=== PATIENT | female | born 1945 | race Caucasian/White ===

== ENCOUNTER 2019-08-02 08:49 | Outpatient (CLI) | payer MEDICARE, OTHER, SELFPAY ==
--- NOTE | 2019-08-02 09:07 | MM_ITS ---
WS: [id number] DIAGNOSTIC LEFT DIGITAL MAMMOGRAM WITH CAD HISTORY: 6 MO F/U LT BREAST ABNORMAL MAMMOGRAM COMPARISON: 01/11/2019, 12/22/2018, 11/19/2016 Technique: CC, MLO and ML views. Spot compression LEFT. Breast composition: There are scattered areas of fibroglandular density. The vague asymmetry seen in the medial LEFT breast is no longer present. No suspicious masses. Benign breast arterial calcificat ions. MM/[place] [id number] IMPRESSION: BI-RADS: 2-Benign FOLLOW UP: See Report Patient to return to annual screening mammography. Screening mammogram should b e in December 2019.
== END 2019-08-02 08:50 | disposition home or self-care (01) ==
LOC: RADSHAW 08:55
PROVIDERS: Family Provider Family Medicine; PCP Family Medicine; Visit Provider Family Medicine
DX: R92.8 Other abnormal and inconclusive findings on diagnostic imaging of breast (principal)
CPT/HCPCS: 77065

== ENCOUNTER 2020-01-02 10:49 | Outpatient (CLI) | payer MEDICARE, OTHER, SELFPAY ==
--- NOTE | 2020-01-02 10:59 | MM_ITS ---
WS: [id number] BILATERAL DIGITAL SCREENING MAMMOGRAPHY WITH CAD CLINICAL INFORMATION: SCREENING HISTORY: Screening mammogram. No current complaints. COMPARISON: August 02, 2019 TECHNIQUE: Bilateral CC and MLO views. FINDINGS: Scattered fibroglandular densities bilaterally. No suspicious focal mass, asymmetry, calcifications, or architectural distortion. No evidence of malignancy. Vascular calcification MM/[place] [id number] IMPRESSION: BI-RADS: 2-Benign FOLLOW UP: 1 Year Follow-up Recommend return to annual screening mammography.
== END 2020-01-02 10:50 | disposition home or self-care (01) ==
PROVIDERS: PCP Internal Medicine; Visit Provider Family Medicine
DX: Z12.31 Encounter for screening mammogram for malignant neoplasm of breast (principal)
CPT/HCPCS: 77067

== ENCOUNTER 2020-03-05 14:36 | Outpatient (CLI) | payer MEDICARE, OTHER, SELFPAY ==
--- NOTE | 2020-03-05 14:58 | XR_ITS ---
WS: [id number] SCREENING DEXA SCAN D-ÉG [employer] CLINICAL INFORMATION: ASYMPTOMATIC POSTMENOPAUSAL STATUS COMPARISON: May 04, 2017 FINDINGS: The L1-L4 bone mineral density measures 1.499 g/cm2. This corresponds to a T score score of 2.7 and Z score of 3.4. Left femoral neck bone mineral density measures 1.118 g/cm2. This corresponds to a T score of 0.9 and Z score of 1.9. Right femoral neck bone mineral density measures 1.104 g/cm2. This corresponds to a T score 0.8of and Z score of 1.7. Mean femoral neck bone mineral density measures 1.111 g/cm2. This corresponds to a T score of 0.8 and Z score of 1.8. XR/XR DEXA axial skeleton* [id number] IMPRESSION: Normal bone mineralization. Patient's FRAX calculated 10 year probability for major osteoporotic fracture i s 12.9 % and osteoporotic hip fracture is 1.5%.
== END 2020-03-05 14:37 | disposition home or self-care (01) ==
LOC: RADWPI 14:40
PROVIDERS: PCP Internal Medicine; Visit Provider Internal Medicine
DX: Z78.0 Asymptomatic menopausal state (principal)
CPT/HCPCS: 77080

== ENCOUNTER 2021-03-04 12:18 | Outpatient (CLI) | payer MEDICARE, OTHER, SELFPAY ==
--- NOTE | 2021-03-04 12:42 | MM_ITS ---
WS: [id number] SCREENING DIGITAL MAMMOGRAM WITH CAD HISTORY: YEARLY SCREENING COMPARISON: None available. Bilateral CC and MLO views submitted. Computer aided detection analyzed. Breast composition: There are scattered areas of fibroglandular density. Increasing cluster of calcif ications in the central RIGHT breast posteriorly need further evaluation with magnification views. Th ere is an asymmetry in the superior RIGHT breast on the MLO projection at a middle depth measuring 7 mm. Additional increasing asymmetry on the LEFT MLO central to the nipple in the anterior breast. MM/[place] [id number] IMPRESSION: BI-RADS: 0-Incomplete: Need additional imaging evaluation FOLLOW UP: Need Additional Imaging RIGHT breast: Spot compression views (MLO). True ML. Ultrasound to follow if ab normality persists. LEFT breast: Spot compression views (MLO). True ML. Ultrasound to follow if abn ormality persists. RIGHT BREAST: Magnification views of suspicious calcification CC and MLO. True ML.
== END 2021-03-04 12:19 | disposition home or self-care (01) ==
LOC: RADSHAW 12:26
PROVIDERS: PCP Internal Medicine; Visit Provider Internal Medicine
DX: Z12.31 Encounter for screening mammogram for malignant neoplasm of breast (principal)
CPT/HCPCS: 77067

== ENCOUNTER 2021-03-27 12:38 | Outpatient (CLI) | payer MEDICARE, OTHER, SELFPAY ==
--- NOTE | 2021-03-27 13:11 | US_ITS ---
WS: [id number] ADDITIONAL VIEWS BILATERAL MAMMOGRAM LEFT breast ultrasound, limited. HISTORY: ABNORMAL MAMMOGRAM COMPARISON: 03/04/2021, 01/02/2020, 08/02/2019 and 12/22/2018 Spot compression views LEFT breast in CC, MLO projections and true ML submitted. The nodular asymmetr ies persist in the anterior breast of mild increased density. Ultrasound to be performed. Magnification views of calcifications in the posterior RIGHT breast have been performed. Calcificatio ns are in the central posterior breast. This is a small cluster of calcifications and some of these a re irregular. Biopsy to be performed. LEFT breast ultrasound, limited. Ultrasound directed to the anterior breast. No suspicious masses or dilated ducts are identified. US/US breast LT limited* [id number] IMPRESSION: BI-RADS: 4-Suspicious Finding-Biopsy Should Be Considered FOLLOW UP: Stereotactic Biopsy Recommended Stereotactic biopsy recommended of the RIGHT breast calcifications.
== END 2021-03-27 12:39 | disposition home or self-care (01) ==
LOC: RADSHAW 12:48
PROVIDERS: PCP Internal Medicine; Visit Provider Internal Medicine
DX: R92.8 Other abnormal and inconclusive findings on diagnostic imaging of breast (principal); R92.1 Mammographic calcification found on diagnostic imaging of breast
CPT/HCPCS: 76642; 77066

== ENCOUNTER 2022-10-16 11:47 | Outpatient (CLI) | payer MEDICARE, SELFPAY ==
--- NOTE | 2022-10-16 11:57 | XR_ITS ---
WS: [email or web address] Lumbar spine, 5 views including obliques, 10/16/2022 Clinical Data: DEGENERATIVE DISC DISEASE, LUMBOSACRAL SPINE W/RADICULOPATH Comparison: Lumbar spine, 01/06/2017. Findings: No compression fractures or subluxation is seen. There are multilevel bridging osteophytes along with disc narrowing at every lumbar level. The oblique films show no spondylolysis. The transverse proces ses and SI joints are normal. The abdominal aorta shows calcification but no aneurysm. XR/XR lumbar spine min 4V [id number] Impression: Multilevel bridging osteophytes with degenerative disc narrowing with minimal p rogression
== END 2022-10-16 11:48 | disposition home or self-care (01) ==
PROVIDERS: PCP Internal Medicine; Visit Provider Internal Medicine
DX: M51.16 Intervertebral disc disorders with radiculopathy, lumbar region (principal)
CPT/HCPCS: 72110

== ENCOUNTER 2022-11-04 14:44 | Outpatient (CLI) | payer MEDICARE, SELFPAY ==
--- NOTE | 2022-11-04 15:27 | MR_ITS ---
WS: [email or web address] MRI LUMBAR SPINE NONCONTRAST TECHNIQUE: Sagittal T1, T2 and STIR imaging. Axial T1 and T2 imaging. CLINICAL INFORMATION: DEGENERATIVE DISK DISEASELUMBROSACRAL SPINE W/RADICULOPATHY COMPARISON: MRI 2017 FINDINGS: Mild lumbar curve. No acute compression. No high-grade central canal stenosis. L1-L2: Mild annular bulging. Mild facet arthropathy. Spinal canal and foramen are patent. L2-L3: Mild annular bulging. Slight effacement of the ventral thecal sac. Mild facet arthropathy. Sli ght narrowing of subarticular recess bilaterally. L3-L4: Mild annular bulging. Slight narrowing of the RIGHT greater than LEFT subarticular recess. Mil d facet arthropathy. Foramen are patent. L4-L5: Mild annular bulging. Mild central canal stenosis. Impingement on traversing LEFT L5 nerve burke t in the subarticular recess. Mild facet arthropathy. Foramen are patent. L5-S1: Disc osteophyte complex with endplate ridging. Slight impingement traversing RIGHT S1 nerve ro ot in the subarticular recess. Foramen are patent. Partially visualized hepatic cyst. Peripelvic LEFT renal cysts MR/MR lumbar spine wo con* [id number] IMPRESSION: Disc bulging at L3-L4 is improved compared to 2017 with increased d isc desiccation. Central canal stenosis at L4-L5 appears slightly progressed. N o other remarkable interval changes. 1. Mild lumbar curve. No acute compression. No high-grade central canal stenos is. 2. Mild central canal stenosis L3-L4 and L4-L5 with impingement on the LEFT L4 -L5 subarticular recess and traversing LEFT L5 nerve root. 3. Disc osteophyte complex L5-S1 slightly impinges the traversing RIGHT greate r than LEFT S1 nerve roots. 4. Mild to moderate facet arthropathy L3-L5.
== END 2022-11-04 14:45 | disposition home or self-care (01) ==
PROVIDERS: PCP Internal Medicine; Visit Provider Internal Medicine
DX: M51.17 Intervertebral disc disorders with radiculopathy, lumbosacral region (principal); M48.061 Spinal stenosis, lumbar region without neurogenic claudication; M25.78 Osteophyte, vertebrae; M47.816 Spondylosis without myelopathy or radiculopathy, lumbar region
CPT/HCPCS: 72148

== ENCOUNTER 2022-12-05 13:59 | Outpatient (CLI) | payer MEDICARE, SELFPAY ==
--- NOTE | 2022-12-05 14:13 | MR_ITS ---
WS: [email or web address] MRI HEAD WITH CONTRAST TECHNIQUE: Sagittal T1, T2 axial, T2 axial FLAIR, axial susceptibility weighted imaging, axial diffus ion weighted images, and coronal T2 images were obtained. Pre and post-T1 axial and post T1 coronal i mages. ADC and FSPGR images. CLINICAL INFORMATION: MEMORY DEFICIT COMPARISON: None. FINDINGS: No evidence of restricted diffusion to suggest acute ischemia. Ventricular system and basal cisterns are patent. Moderate to advanced small vessel changes with mild parenchymal volume loss. Small vessel changes in the josué. Normal posterior fossa. Normal vascular flow voids at the skull base. No extra- axial fluid collections. No evidence of mass or mass effect. Paranasal sinuses are well aerated. Retention cyst in the sphenoid sinus. Normal posterior nasopharyn x and parapharyngeal fat. Mastoid air cells well aerated. Normal optic chiasm and pituitary infundibu lum. Mild symmetric atrophy temporal lobes and hippocampal formations. Normal cavernous sinuses and M sherif's cave. No hemosiderin on susceptibly weighted images. Incidental benign venous angioma in the RIGHT parietal lobe. No abnormal foci of enhancement. Normal visualized dural venous sinuses. MR/MR head wo/w con [id number] IMPRESSION: 1. No evidence of restricted diffusion to suggest acute ischemia. 2. Moderate to advanced small vessel changes with mild parenchymal volume loss . 3. Small vessel changes in the josué. 4. No abnormal gadolinium enhancement. 5. Incidental benign venous angioma RIGHT parietal lobe. 6. Retention cyst in the sphenoid sinus measuring 15 mm.
[2022-12-05] MEDS: gadobenate dimeglumine 20 mL vial IV (15:22)
== END 2022-12-05 14:00 | disposition home or self-care (01) ==
PROVIDERS: PCP Internal Medicine; Visit Provider Nurse Practitioner Family
DX: R41.3 Other amnesia (principal); R41.0 Disorientation, unspecified; I67.89 Other cerebrovascular disease; D18.02 Hemangioma of intracranial structures; J34.1 Cyst and mucocele of nose and nasal sinus
CPT/HCPCS: 70553; A9577

== ENCOUNTER → 2023-05-12 14:39 | Outpatient (BNVA) | payer MEDICARE, SELFPAY | PROVIDERS: PCP Internal Medicine; Visit Provider Orthopaedic Surgery | DX: M48.062 Spinal stenosis, lumbar region with neurogenic claudication; M25.761 Osteophyte, right knee; M51.36 Other intervertebral disc degeneration, lumbar region | CPT/HCPCS: 72100; 73560; 73565; 99204 ==

== ENCOUNTER 2023-05-29 09:46 | Outpatient (CLI) | payer MEDICARE, SELFPAY ==
--- NOTE | 2023-05-29 09:58 | XRR_ITS ---
PROCEDURE INFORMATION: Exam: XR Lumbosacral Spine Exam date and time: 05/29/2023 10:01 AM Age: 77 years old Clinical indication: Injury or trauma; Fall; Blunt trauma (contusions or hematomas); Injury date: 1 week ago; Additional info: Ddd TECHNIQUE: Imaging protocol: Radiologic exam of the lumbosacral spine. Views: 2 or 3 views. COMPARISON: CR XR lumbar spine 2-3V* [id number] 05/12/2023 2:52 PM FINDINGS: Bones/joints: No acute fracture. Normal alignment. Mild intervertebral disc space narrowing with multilevel flowing osteophytosis. Multilevel facet arthrosis. Bilateral sacroiliac joint degenerative changes. Soft tissues: Unremarkable. Vasculature: Aortoiliac atherosclerotic calcification. XR/XR lumbar spine 2-3V* [id number] IMPRESSION: 1. No acute findings. 2. Likely combination of degenerative and diffuse idiopathic skeletal hyperostotic changes along the spine.
== END 2023-05-29 09:47 | disposition home or self-care (01) ==
LOC: RAD 09:49
PROVIDERS: PCP Internal Medicine; Visit Provider Internal Medicine
DX: M51.17 Intervertebral disc disorders with radiculopathy, lumbosacral region (principal)
CPT/HCPCS: 72100

== ENCOUNTER → 2023-06-24 11:22 | Outpatient (BNVA) | payer MEDICARE, SELFPAY | PROVIDERS: PCP Internal Medicine; Visit Provider Anesthesiology Pain Medicine | DX: M16.11 Unilateral primary osteoarthritis, right hip (principal); M48.062 Spinal stenosis, lumbar region with neurogenic claudication; M54.16 Radiculopathy, lumbar region; M47.816 Spondylosis without myelopathy or radiculopathy, lumbar region | CPT/HCPCS: 73502; 99204 ==

== ENCOUNTER 2023-06-25 13:39 | Outpatient (CLI) | payer MEDICARE, SELFPAY ==
--- NOTE | 2023-06-25 13:46 | XR_ITS ---
WS: [email or web address] Exam: XR chest 2V* [id number] Date/Time of Exam: 06/25/2023 1:46 PM Reason For Exam: WHEEZING No priors. The lungs are fully inflated and clear. Heart size top limits normal. The mediastinum is normal in co ntour. No pleural effusions. Spondylosis of the thoracic spine. IMPRESSION: 1. No acute cardiopulmonary finding.
== END 2023-06-25 13:40 | disposition home or self-care (01) ==
LOC: RAD 13:40
PROVIDERS: PCP Internal Medicine; Visit Provider Internal Medicine
DX: R06.2 Wheezing (principal)
CPT/HCPCS: 71046

== ENCOUNTER → 2023-07-08 13:31 | Outpatient (BNVA) | payer MEDICARE, SELFPAY | PROVIDERS: PCP Internal Medicine; Visit Provider Anesthesiology Pain Medicine | DX: M54.16 Radiculopathy, lumbar region (principal); M48.062 Spinal stenosis, lumbar region with neurogenic claudication | CPT/HCPCS: 64483; 64484; J1100; J3490 ==

== ENCOUNTER → 2023-07-21 10:08 | Outpatient (BNVA) | payer MEDICARE, SELFPAY | PROVIDERS: PCP Internal Medicine; Visit Provider Anesthesiology Pain Medicine | DX: M48.062 Spinal stenosis, lumbar region with neurogenic claudication (principal); M54.16 Radiculopathy, lumbar region | CPT/HCPCS: 99214 ==

== ENCOUNTER → 2023-08-04 13:50 | Outpatient (BNVA) | payer MEDICARE, SELFPAY | PROVIDERS: PCP Internal Medicine; Visit Provider Anesthesiology Pain Medicine | DX: M16.11 Unilateral primary osteoarthritis, right hip (principal) | CPT/HCPCS: 20610; 77002; J1030; J3490 ==

== ENCOUNTER → 2023-09-07 10:26 | Outpatient (BNVA) | payer MEDICARE, SELFPAY | PROVIDERS: PCP Internal Medicine; Visit Provider Anesthesiology Pain Medicine | DX: M19.90 Unspecified osteoarthritis, unspecified site (principal); M48.062 Spinal stenosis, lumbar region with neurogenic claudication; M54.16 Radiculopathy, lumbar region; M25.551 Pain in right hip; M47.816 Spondylosis without myelopathy or radiculopathy, lumbar region | CPT/HCPCS: 99215 ==

== ENCOUNTER → 2023-10-28 13:42 | Outpatient (BNVA) | payer MEDICARE, SELFPAY | PROVIDERS: PCP Internal Medicine; Referring Provider Anesthesiology Pain Medicine; Visit Provider Specialist | DX: M25.551 Pain in right hip (principal); M48.062 Spinal stenosis, lumbar region with neurogenic claudication; M16.0 Bilateral primary osteoarthritis of hip | CPT/HCPCS: 36415; 73523; 80053; 84550; 85025; 85651; 86140; 86200; 86225; 86235; 86431; 99204 ==

== ENCOUNTER → 2023-11-30 12:56 | Outpatient (BNVA) | payer MEDICARE, SELFPAY | PROVIDERS: PCP Internal Medicine; Visit Provider Specialist | DX: M16.0 Bilateral primary osteoarthritis of hip (principal) | CPT/HCPCS: 99214 ==

== ENCOUNTER 2024-01-27 12:13 | Outpatient (RCR) | payer MEDICARE, SELFPAY | END 2024-02-06 23:59 | disposition home or self-care (01) | LOC: SPT 12:13 | PROVIDERS: PCP Internal Medicine; Visit Provider Internal Medicine | DX: M25.50 Pain in unspecified joint (principal) | CPT/HCPCS: 97110; 97116; 97161 ==

== ENCOUNTER 2024-02-07 06:00 | Outpatient (RCR) | payer MEDICARE, SELFPAY | END 2024-03-07 23:59 | disposition home or self-care (01) | LOC: SPT 06:00 | PROVIDERS: PCP Internal Medicine; Visit Provider Internal Medicine | DX: M25.50 Pain in unspecified joint (principal) | CPT/HCPCS: 97110 ==

== ENCOUNTER 2024-07-15 11:03 | Outpatient (CLI) | payer MEDICARE, SELFPAY ==
--- NOTE | 2024-07-15 11:10 | CT_ITS ---
WS: [id number] CT CHEST, ABDOMEN AND PELVIS WITH CONTRAST HISTORY: EVALUATE FOR ABSCESS TECHNIQUE: Contiguous 5 mm axial imaging performed through the chest, abdomen and pelvis with IV contrast, oral contrast has been provided. Coronal and sagittal reformats chest. Coronal and sagittal reformats through the abdomen and pelvis. All CT scans at [facility] use at least one of these dose optimization techniques: automated exposure control; mA and/or kV adjustment per patient size (includes targeted exams where dose is matched to clinical indication); or iterative reconstruction. CONTRAST: Omnipaque 350; 100 mL IV. DLP: 1240.96 mGy.cm COMPARISON: 10/27/[address]: Lungs are well expanded and clear. No pneumonia. Normal size heart. Mild atherosclerosis aorta. No mediastinal or hilar adenopathy. Normal size pulmonary artery. No significant hiatal hernia. Noncalcified soft tissue nodule in the inferior RIGHT breast measures [address]: Normal size liver. Well-circumscribed cyst in the RIGHT lobe measures 5.2 x 5.7 cm. There are a few additional small cysts in the LEFT lobe of the liver which are stable. Normal portal vein. Normal gallbladder. No adrenal mass. Normal spleen and pancreas. Mild atherosclerotic plaque scattered throughout the abdominal aorta. Normal variant celiac axis. Celiac axis and SMA enhance but there is scattered plaque. Normal enhancement of each kidney. No obstruction or mass. Stomach is well distended. No GI tract obstruction. No appendicitis. There are a few scattered diverticula in the distal colon with no acute diverticulitis. Pelvic CT: Nondistended urinary bladder. Uterus is absent. Severe arthropathy at the RIGHT hip joint. Complete loss of the joint space with osteophytic ridging around the femoral head and acetabulum. Subchondral cystic changes on both sides of the joint. CT/CT chest abdpel w/*[id number] IMPRESSION: 1. No acute inflammatory changes noted within the chest, abdomen or pelvis. 2. No pneumonia. 3. No adenopathy in the chest, abdomen or pelvis. 4. Stable RIGHT hepatic cyst. 5. No GI tract obstruction. 6. Noncalcified RIGHT breast nodule measures 12 mm. Most recent mammogram was from 2020. Recommend follow-up diagnostic mammogram. 7. Severe RIGHT hip joint arthropathy.
[2024-07-15 12:26] LABS: Erythrocyte Sedimentation Rate 40 mm/hr (0-15)
[2024-07-15 12:36] LABS: Urine Creatinine 106 mg/dL (28-217)
[2024-07-15 12:37] LABS: Blood Urea Nitrogen 19 mg/dL (8-23)
[2024-07-15 12:42] LABS: Total Protein, Random Urine 10.1 mg/dL (0.0-20.0)
[2024-07-15 12:48] LABS: C Reactive Protein 18.1 mg/L (0.0-4.9)
[2024-07-15] MEDS: iohexol 350 mg/mL 500 mL Btl (per mL) PO (12:55)
[2024-07-15] MEDS: iohexol 350 mg/mL 500 mL Btl (per mL) IV (12:55)
[2024-07-18 13:54] LABS: PROTEIN, TOTAL 7.3 g/dL (6.1-8.1)
[2024-07-18 19:14] LABS: ALBUMIN 3.9 g/dL (3.8-4.8); ALPHA 1 GLOBULIN 0.4 g/dL (0.2-0.3); ALPHA 2 GLOBULIN 1.1 g/dL (0.5-0.9); BETA 1 GLOBULIN 0.5 g/dL (0.4-0.6); BETA 2 GLOBULIN 0.5 g/dL (0.2-0.5)
== END 2024-07-15 11:04 | disposition home or self-care (01) ==
PROVIDERS: PCP Internal Medicine; Visit Provider Internal Medicine Rheumatology
DX: R70.0 Elevated erythrocyte sedimentation rate (principal); R79.82 Elevated C-reactive protein (CRP); K76.89 Other specified diseases of liver; N63.10 Unspecified lump in the right breast, unspecified quadrant; M12.851 Other specific arthropathies, not elsewhere classified, right hip; I70.0 Atherosclerosis of aorta; R93.89 Abnormal findings on diagnostic imaging of other specified body structures; K57.30 Diverticulosis of large intestine without perforation or abscess without bleeding; Z98.890 Other specified postprocedural states; R93.7 Abnormal findings on diagnostic imaging of other parts of musculoskeletal system
CPT/HCPCS: 36415; 71260; 74177; 82565; 82570; 84155; 84156; 84165; 84520; 85651; 86140; 86335

== ENCOUNTER → 2024-10-18 14:24 | Outpatient (BNVA) | payer MEDICARE, SELFPAY | PROVIDERS: PCP Internal Medicine; Visit Provider Psychiatry & Neurology Neurology | DX: R41.3 Other amnesia (principal); F03.90 Unspecified dementia, unspecified severity, without behavioral disturbance, psychotic disturbance, mood disturbance, and anxiety; E55.9 Vitamin D deficiency, unspecified; R26.89 Other abnormalities of gait and mobility; R79.82 Elevated C-reactive protein (CRP); R70.0 Elevated erythrocyte sedimentation rate; R41.0 Disorientation, unspecified | CPT/HCPCS: 36415; 82306; 82542; 82607; 82746; 83520; 83735; 83921; 84439; 84443; 84481; 99203 ==

== ENCOUNTER → 2024-10-20 07:58 | Outpatient (BNVA) | payer MEDICARE, SELFPAY | PROVIDERS: PCP Internal Medicine; Visit Provider Nurse Practitioner Family | DX: L98.1 Factitial dermatitis (principal); L81.0 Postinflammatory hyperpigmentation; F42.4 Excoriation (skin-picking) disorder; L73.8 Other specified follicular disorders; L82.1 Other seborrheic keratosis; L89.311 Pressure ulcer of right buttock, stage 1; Z71.3 Dietary counseling and surveillance; L81.4 Other melanin hyperpigmentation; L57.8 Other skin changes due to chronic exposure to nonionizing radiation; X32.XXXA Exposure to sunlight, initial encounter; L57.3 Poikiloderma of Civatte; Z12.83 Encounter for screening for malignant neoplasm of skin | CPT/HCPCS: 11102; 99203 ==

== ENCOUNTER 2024-10-28 15:04 | Outpatient (CLI) | payer MEDICARE, SELFPAY ==
--- NOTE | 2024-10-28 15:30 | USCV_ITS ---
Cecilia Arredondo Age: 78 Gender: F : 1945 Exam Date: 10/28/2024 15:12 Ordering Phys: Junaid Ruiz MD Technologist: [employer] Exam Location: [place] Indication: dementia Risk Factors: Previous Vascular Surgery: Right Brachial BP: / Left Brachial BP: / Right Left Velocity (cm/s) Spectral Plaque Velocity (cm/s) Spectral Plaque Syst/Diast Broadening Syst/Diast Broadening 76.80/ 13.90 Prox CCA 77.40 / 17.90 95.60/ 19.00 Mid CCA 103.60/ 19.50 99.20/ 18.90 Distal CCA 78.30 / 17.10 71.80/ 20.30 Prox ICA 65.20 / 14.10 71.80/ 20.30 Mid ICA 72.80 / 20.60 76.60/ 22.60 Distal ICA 82.10 / 22.10 97.60 ECA 101.90 0.70 ICA/CCA 0.80 Antegrade Vertebral Antegrade 49.80/ 13.00 cm/s 55.20/ 12.70 cm/s Tri Subclavian Tri 70.70 144.9 0 CONCLUSIONS Right ICA stenosis <50%. Mild atheromatous plaque right carotid bulb/ICA. Left ICA stenosis <50%. Mild atheromatous plaque left carotid bulb/ICA. Normal antegrade Doppler flow noted in the right vertebral artery. Normal antegrade Doppler flow noted in the left vertebral artery. Naresh Pedraza MD (Electronically Signed) Final Date: 30 Oct 2024 17:15 S
== END 2024-10-28 15:05 | disposition home or self-care (01) ==
LOC: RAD 15:08
PROVIDERS: PCP Internal Medicine; Visit Provider Psychiatry & Neurology Neurology
DX: R26.89 Other abnormalities of gait and mobility (principal); F03.90 Unspecified dementia, unspecified severity, without behavioral disturbance, psychotic disturbance, mood disturbance, and anxiety; I65.23 Occlusion and stenosis of bilateral carotid arteries
CPT/HCPCS: 93880

== ENCOUNTER 2024-11-01 09:36 | Outpatient (CLI) | payer MEDICARE, SELFPAY ==
--- NOTE | 2024-11-01 10:45 | MR_ITS ---
WS: [email or web address] MRA HEAD TECHNIQUE: Axial 3-D TOF images obtained with axial images and axial, sagittal, and coronal 2-D reformatted images. CLINICAL INFORMATION: R41.3 - Other amnesia COMPARISON: None. FINDINGS: Distal vertebral arteries are patent. Basilar artery is patent. Normal vascularity to the [employer] territory bilaterally. Both ICAs are patent at the skull base. Normal vascularity to the KATHERINE and MCA territories bilaterally. No evidence of proximal flow-limiting stenosis. MR/MR angio head wo con [id number] IMPRESSION: Unremarkable intracranial MRA.
--- NOTE | 2024-11-01 11:00 | MR_ITS ---
WS: [email or web address] MRI HEAD WITHOUT CONTRAST TECHNIQUE: Sagittal T1, T2 axial, T2 axial FLAIR, axial and coronal T1 images, axial susceptibility weighted imaging, axial diffusion weighted images, and coronal T2 images were obtained. CLINICAL INFORMATION: F03.90 - Unspecified dementia, unspecified severity, with... COMPARISON: MRI 2022 FINDINGS: No evidence of restricted diffusion to suggest acute ischemia. Moderate to advanced small vessel changes. Moderate parenchymal volume loss. Advanced small vessel changes in the josué. Normal vascular flow voids at the skull base. No extra-axial fluid collections. Small amount of fluid in the sphenoid sinus. Mastoid air cells are well aerated. Mild symmetric atrophy temporal lobes hippocampal formations. Normal optic chiasm and pituitary infundibulum. No hemosiderin on the susceptibly weighted images. MR/MR head wo con* [id number] IMPRESSION: 1. No evidence of restricted diffusion to suggest acute ischemia. 2. Moderate to advanced small vessel changes with moderate parenchymal volume loss. Small vessel changes slightly progressed. 3. Advanced small vessel changes in the josué. 4. Mild symmetric atrophy temporal lobes hippocampal formations. 5. No hemosiderin on the susceptibly weighted imaging.
== END 2024-11-01 09:37 | disposition home or self-care (01) ==
PROVIDERS: PCP Internal Medicine; Visit Provider Psychiatry & Neurology Neurology
DX: R41.3 Other amnesia (principal); F06.1 Catatonic disorder due to known physiological condition; R93.0 Abnormal findings on diagnostic imaging of skull and head, not elsewhere classified; G31.89 Other specified degenerative diseases of nervous system; J34.89 Other specified disorders of nose and nasal sinuses
CPT/HCPCS: 70544; 70551

== ENCOUNTER → 2024-11-08 14:31 | Outpatient (BNVA) | payer MEDICARE, SELFPAY | PROVIDERS: PCP Internal Medicine; Referring Provider Psychiatry & Neurology Neurology; Visit Provider Psychiatry & Neurology Neurology | DX: R56.9 Unspecified convulsions (principal) | CPT/HCPCS: 95812; 95816 ==

== ENCOUNTER → 2024-12-20 13:20 | Outpatient (BNVA) | payer MEDICARE, SELFPAY | PROVIDERS: PCP Internal Medicine; Visit Provider Psychiatry & Neurology Neurology | DX: R41.3 Other amnesia (principal) | CPT/HCPCS: 36415; 80053; 84439; 84443; 84481; 85025; 96116; 99213 ==

== ENCOUNTER → 2024-12-21 11:29 | Outpatient (BNVA) | payer MEDICARE, SELFPAY | PROVIDERS: PCP Internal Medicine; Referring Provider Psychiatry & Neurology Neurology; Visit Provider Internal Medicine Rheumatology | DX: M16.0 Bilateral primary osteoarthritis of hip (principal); R79.82 Elevated C-reactive protein (CRP); R70.0 Elevated erythrocyte sedimentation rate; G30.9 Alzheimer's disease, unspecified; F02.80 Dementia in other diseases classified elsewhere, unspecified severity, without behavioral disturbance, psychotic disturbance, mood disturbance, and anxiety; M25.50 Pain in unspecified joint; M19.041 Primary osteoarthritis, right hand; M19.042 Primary osteoarthritis, left hand; S93.312A Subluxation of tarsal joint of left foot, initial encounter; M19.072 Primary osteoarthritis, left ankle and foot; S93.311A Subluxation of tarsal joint of right foot, initial encounter; M19.071 Primary osteoarthritis, right ankle and foot; M77.31 Calcaneal spur, right foot; M77.32 Calcaneal spur, left foot; X58.XXXA Exposure to other specified factors, initial encounter | CPT/HCPCS: 36415; 73130; 73630; 83883; 84155; 84165; 85651; 86140; 99204 ==

== ENCOUNTER → 2025-01-20 10:50 | Outpatient (BNVA) | payer MEDICARE, SELFPAY | PROVIDERS: PCP Internal Medicine; Visit Provider Internal Medicine | DX: E11.9 Type 2 diabetes mellitus without complications (principal); E03.9 Hypothyroidism, unspecified | CPT/HCPCS: 99204 ==